=== PATIENT | female | born 1975 | race Caucasian/White ===

== ENCOUNTER 2021-11-22 15:34 | Emergency (ER) | payer OTHER ==
[~2021-11-22] VITALS: Ht 175.3 cm; Wt 70.0 kg
[2021-11-22] VITALS (13 sets, daily range): BP systolic 117–147; BP diastolic 74–96
[2021-11-22 16:58] LABS: URINE BILIRUBIN - DIPSTICK NEGATIVE (NEGATIVE); URINE BLOOD DIPSTICK NEGATIVE (NEGATIVE); URINE COLOR YELLOW; URINE GLUCOSE - DIPSTICK NEGATIVE (NEGATIVE); URINE KETONE NEGATIVE (NEGATIVE); URINE LEUK ESTERASE NEGATIVE (NEGATIVE); URINE NITRITE - DIPSTICK NEGATIVE (Negative); URINE PH 6.5 (4.5-8.0); URINE PROTEIN - DIPSTICK NEGATIVE (NEG-TRACE); URINE SPECIFIC GRAVITY <=1.005; URINE UROBILINOGEN - DIPSTICK 0.2 E.U./dL (0.2)
[2021-11-22] MEDS ORDERED: ZOFRAN4 MG/TAB PO (18:13)
[2021-11-22] MEDS ORDERED: CYCLOBENZAPRINE10 MG PO (18:39)
== END 2021-11-22 18:41 | disposition home or self-care (01) | DRG 103 ==
LOC: ED 15:34
DX: G43.909 Migraine, unspecified, not intractable, without status migrainosus (principal); F41.9 Anxiety disorder, unspecified; F32.A Depression, unspecified; M48.02 Spinal stenosis, cervical region; Z98.84 Bariatric surgery status; Z98.1 Arthrodesis status